=== PATIENT | female | born 1975 | race Caucasian/White ===

== ENCOUNTER 2016-12-06 16:36 | Emergency (ER) | payer BC ==
[~2016-12-06] VITALS: Ht 160 cm; Wt 62.7 kg
[~2016-12-06 16:36] MED LIST: ERGOCALCIF50000 UNIT; PAXIL10 MG PO; Percocet 5/325,Endoc PO; Protonix PO; REGLAN5 MG PO; VIIBRYD20 MG; VIIBRYD20 MG PO; Vitamin D, Drisdol PO
[2016-12-06] MEDS ORDERED: OCUVITE TABLET1 EACH PO (18:13)
[2016-12-06] MEDS ORDERED: LEXAPRO20 MG PO (18:13)
[2016-12-06 19:48] LABS: HEMATOCRIT 38.3 % (36.0-46.0); MCH 34.1 PG (29.0-34.0); MCHC 34.2 G/DL (30.0-36.0); MCV 99.7 FL (83-99); MEAN PLAT.VOLUME 8.6 uM^3 (9.5-12.4); PLATELET COUNT 127 K/uL (156-360); RBC DIS.WIDTH-CV 12.1 % (11.8-14.6); RBC DIS.WIDTH-SD 43.5 % (39-53); RED BLOOD COUNT 3.84 M/uL (3.80-5.20); WHITE BLOOD COUNT 2.8 K/uL (4.1-10.2)
[2016-12-06] MEDS ORDERED: NORCO 5/3251 TABLET PO (19:50)
[2016-12-06] MEDS ORDERED: SKELAXIN800 MG PO (19:50)
[2016-12-06 20:01] LABS: ADD MIUA? YES; BILIRUBIN NEGATIVE; BLOOD NEGATIVE; COLOR YELLOW ((YELLOW)); GLUCOSE (STRIP) NEGATIVE; KETONES 15; LEUKOCYTES SMALL; NITRITE NEGATIVE; PROTEIN (STRIP) NEGATIVE; SPECIFIC GRAVITY 1.017 (1.000-1.030); UROBILINOGEN 0.2 MG/DL (0.2-1.0)
[2016-12-06 20:01] LABS: CHLORIDE 100 mEq/L (99-109); POTASSIUM 4.1 mEq/L (3.7-5.4); SODIUM 137 mEq/L (136-147)
[2016-12-06 20:03] LABS: GLUCOSE 79 mg/dL (70-99)
[2016-12-06 20:04] LABS: ANION GAP 14 MEQ/L (2-14)
[2016-12-06 20:06] VITALS: BP 125/87
[2016-12-06 20:06] LABS: GFR ESTIMATE (CALCULATED) > 59 mL/min/
[2016-12-06 20:07] LABS: UREA NITROGEN (BUN) 7 mg/dL (9-23)
[2016-12-06 20:33] LABS: BACTERIA RARE /HPF; CASTS NONE SEEN /LPF; CRYSTALS NONE SEEN; EPITHELIAL CELLS RARE /HPF; MUCUS NONE SEEN /LPF; RED BLOOD CELLS 0-5 /HPF (0-5); UCUL ADDED? NO
== END 2016-12-06 20:07 | disposition home or self-care (01) ==
LOC: EME 16:36
PROVIDERS: Physician Assistant
DX: M54.5 Low back pain (principal); G89.29 Other chronic pain; M54.16 Radiculopathy, lumbar region
CPT/HCPCS: 72148; 80048; 81003; 85027; 99281; 99284

== ENCOUNTER 2017-04-08 16:31 | Observation (INO) | payer OTHER ==
[~2017-04-08] VITALS: Ht 160 cm; Wt 56.9 kg
[~2017-04-08 16:31] MED LIST changes: +LEXAPRO20 MG PO; +NORCO 5/3251 TABLET PO; +OCUVITE TABLET1 EACH PO; +SKELAXIN800 MG PO
[2017-04-08 17:18] LABS: HEMATOCRIT 39.3 % (36.0-46.0); MCH 34.5 PG (29.0-34.0); MCHC 34.4 G/DL (30.0-36.0); MCV 100.5 FL (83-99); PLATELET COUNT 135 K/uL (156-360); RBC DIS.WIDTH-SD 48.5 % (39-53); RED BLOOD COUNT 3.91 M/uL (3.80-5.20); WHITE BLOOD COUNT 3.6 K/uL (4.1-10.2)
[2017-04-08 17:31] LABS: CHLORIDE 98 mEq/L (99-109); POTASSIUM 4.3 mEq/L (3.7-5.4); SODIUM 137 mEq/L (136-147)
[2017-04-08 17:32] LABS: GLUCOSE 109 mg/dL (70-99)
[2017-04-08 17:34] LABS: ANION GAP 11 MEQ/L (2-14)
[2017-04-08 17:36] LABS: GFR ESTIMATE (CALCULATED) > 59 mL/min/
[2017-04-08 17:37] LABS: UREA NITROGEN (BUN) 4 mg/dL (9-23)
[2017-04-08 17:44] LABS: QUANTITATIVE HCG < 4.0 MIU/ML
[2017-04-08 19:15] LABS: ADD MIUA? YES; BILIRUBIN MODERATE; BLOOD NEGATIVE; GLUCOSE (STRIP) NEGATIVE; KETONES 5; LEUKOCYTES MODERATE; NITRITE NEGATIVE; PROTEIN (STRIP) >=500; SPECIFIC GRAVITY 1.023 (1.000-1.030)
[2017-04-08 19:19] LABS: BACTERIA RARE /HPF; EPITHELIAL CELLS RARE /HPF; GRANULAR CASTS 0-5 /LPF; HYALINE CASTS 20-30 /LPF; MUCUS 3+ /LPF; RED BLOOD CELLS 0-5 /HPF (0-5); UCUL ADDED? YES; UNCLASSIFIED CRYSTALS 1+ /HPF; WHITE BLOOD CELLS TNTC /HPF (0-5)
[2017-04-08 19:20] LABS: COLOR DK YELLOW ((YELLOW))
[2017-04-08 19:49] LABS: ICTOTEST POSITIVE
[2017-04-09 01:51] VITALS: BP 115/75
[2017-04-09 08:45] VITALS: BP 118/75
[2017-04-09 11:43] VITALS: BP 112/77
[2017-04-09] MEDS ORDERED: LEVETIRACETAM500 MG PO (12:04)
== END 2017-04-09 14:23 | disposition home or self-care (01) ==
LOC: EME 16:31 → EDOF 04-09 00:26 → 5WEST 04-09 01:37
PROVIDERS: Physician Assistant
DX: G40.909 Epilepsy, unspecified, not intractable, without status epilepticus (principal); R11.2 Nausea with vomiting, unspecified; S09.90XA Unspecified injury of head, initial encounter; W06.XXXA Fall from bed, initial encounter; R32 Unspecified urinary incontinence; G43.909 Migraine, unspecified, not intractable, without status migrainosus; M54.5 Low back pain; F10.10 Alcohol abuse, uncomplicated; F32.9 Major depressive disorder, single episode, unspecified
CPT/HCPCS: 70450; 70486; 70551; 80048; 81003; 82607; 82746; 84702; 85027; 87086; 87493; 95819; 99281; 99285; G0378; J0696; J1953; J2060; J3411; J3475; J7030; J7042; J7050

== ENCOUNTER 2017-05-08 18:41 | Inpatient (IN) | payer OTHER ==
[~2017-05-08] VITALS: Ht 160 cm; Wt 100.9 kg
[~2017-05-08 18:41] MED LIST changes: +LEVETIRACETAM500 MG PO
[2017-05-08 19:47] LABS: HEMATOCRIT 33.5 % (36.0-46.0); MCH 35.3 PG (29.0-34.0); MCHC 34.6 G/DL (30.0-36.0); MCV 101.8 FL (83-99); MEAN PLAT.VOLUME 9.6 uM^3 (9.5-12.4); PLATELET COUNT 131 K/uL (156-360); RBC DIS.WIDTH-CV 12.1 % (11.8-14.6); RBC DIS.WIDTH-SD 45.3 % (39-53); RED BLOOD COUNT 3.29 M/uL (3.80-5.20); WHITE BLOOD COUNT 9.1 K/uL (4.1-10.2)
[2017-05-08 20:08] LABS: CHLORIDE 101 mEq/L (99-109); POTASSIUM 4.9 mEq/L (3.7-5.4); SODIUM 137 mEq/L (136-147)
[2017-05-08 20:10] LABS: GLUCOSE 150 mg/dL (70-99)
[2017-05-08 20:11] LABS: ANION GAP 17 MEQ/L (2-14)
[2017-05-08 20:12] LABS: TOTAL BILIRUBIN 1.8 mg/dL (0.0-1.0)
[2017-05-08 20:13] LABS: ALKALINE PHOSPHATASE 86 IU/L (3-129)
[2017-05-08 20:14] LABS: GFR ESTIMATE (CALCULATED) > 59 mL/min/
[2017-05-08 20:15] LABS: UREA NITROGEN (BUN) 11 mg/dL (9-23)
[2017-05-08 21:05] LABS: ADD MIUA? YES; BILIRUBIN NEGATIVE; BLOOD NEGATIVE; COLOR YELLOW ((YELLOW)); GLUCOSE (STRIP) NEGATIVE; KETONES 80; LEUKOCYTES NEGATIVE; NITRITE NEGATIVE; PROTEIN (STRIP) 100; SPECIFIC GRAVITY 1.018 (1.000-1.030); UROBILINOGEN 0.2 MG/DL (0.2-1.0)
[2017-05-08 21:30] LABS: BACTERIA RARE /HPF; EPITHELIAL CELLS RARE /HPF; MUCUS TRACE /LPF; RED BLOOD CELLS 0-5 /HPF (0-5); UCUL ADDED? NO; WHITE BLOOD CELLS 0-5 /HPF (0-5)
[2017-05-08 22:56] LABS: QUANTITATIVE HCG < 4.0 MIU/ML
[2017-05-08] MEDS ORDERED: PRESERVISION T1 EACH PO (23:40)
[2017-05-08] MEDS ORDERED: MULTI-VITAMIN1 EAC3 PO (23:40)
[2017-05-08] MEDS ORDERED: PROTONIX40 MG PO (23:40)
[2017-05-09 07:25] LABS: HEMATOCRIT 31.4 % (36.0-46.0); MCH 34.7 PG (29.0-34.0); MCHC 34.1 G/DL (30.0-36.0); MCV 101.9 FL (83-99); MEAN PLAT.VOLUME 9.6 uM^3 (9.5-12.4); PLATELET COUNT 110 K/uL (156-360); RBC DIS.WIDTH-SD 44.9 % (39-53); RED BLOOD COUNT 3.08 M/uL (3.80-5.20); WHITE BLOOD COUNT 5.6 K/uL (4.1-10.2)
[2017-05-09 08:01] LABS: ALKALINE PHOSPHATASE 61 IU/L (3-129); ANION GAP 9 MEQ/L (2-14); CHLORIDE 106 MEQ/L (99-109); GFR ESTIMATE (CALCULATED) > 59 mL/min/; SAMPLE HEMOLYSIS CHECK 0; SAMPLE ICTERIC CHECK 0; SAMPLE LIPEMIA CHECK 0; SODIUM 139 MEQ/L (136-147); TOTAL BILIRUBIN 1.3 MG/DL (0.0-1.0); UREA NITROGEN (BUN) 9 mg/dL (9-23)
[2017-05-09 08:02] LABS: GLUCOSE 88 mg/dL (70-99); POTASSIUM 3.5 MEQ/L (3.7-5.4)
[2017-05-09 10:20] VITALS: BP 118/78
[2017-05-09 10:23] LABS: Estimated Average Glucose 91 mg/dL (70-123); HEMOGLOBIN A1c (GLYCOHEMOGLOB) 4.8 % HGB (Below 5.7)
[2017-05-09 10:35] LABS: HBSG INDEX 0.22
[2017-05-09 10:36] LABS: ANTI-HEPATITIS A VIRUS (IGM) Nonreactive; HAV INDEX 0.14; HPCA INDEX 0.06
[2017-05-09 10:37] LABS: ANTI-HEPATITIS B CORE (IGM) Nonreactive; HBC IgM INDEX 0.08
[2017-05-09 15:05] VITALS: BP 123/77
[2017-05-09 23:26] LABS: INTERNAL CONTROL VALID? YES
[2017-05-09 23:54] LABS: C DIFF TOXIN NEGATIVE (NEGATIVE)
[2017-05-09 23:59] VITALS: BP 109/67
[2017-05-10 00:11] LABS: SPECIMEN PROCESSING CONTROL PASS
[2017-05-10 00:12] LABS: PROBE CHECK PASS
[2017-05-10 05:57] LABS: HEMATOCRIT 30.3 % (36.0-46.0); MCH 34.4 PG (29.0-34.0); MCV 101.3 FL (83-99); MEAN PLAT.VOLUME 10.1 uM^3 (9.5-12.4); PLATELET COUNT 113 K/uL (156-360); RBC DIS.WIDTH-SD 44.7 % (39-53); RED BLOOD COUNT 2.99 M/uL (3.80-5.20); WHITE BLOOD COUNT 5.1 K/uL (4.1-10.2)
[2017-05-10 06:21] LABS: ANION GAP 9 MEQ/L (2-14); CHLORIDE 108 MEQ/L (99-109); GFR ESTIMATE (CALCULATED) > 59 mL/min/; GLUCOSE 84 mg/dL (70-99); POTASSIUM 2.9 MEQ/L (3.7-5.4); SAMPLE HEMOLYSIS CHECK 0; SAMPLE ICTERIC CHECK 0; SAMPLE LIPEMIA CHECK 0; SODIUM 139 MEQ/L (136-147); UREA NITROGEN (BUN) 3 mg/dL (9-23)
[2017-05-10 06:28] LABS: ALKALINE PHOSPHATASE 59 IU/L (3-129); ANION GAP 9 MEQ/L (2-14); CHLORIDE 107 MEQ/L (99-109); GFR ESTIMATE (CALCULATED) > 59 mL/min/; GLUCOSE 84 mg/dL (70-99); POTASSIUM 2.9 MEQ/L (3.7-5.4); SAMPLE HEMOLYSIS CHECK 0; SAMPLE ICTERIC CHECK 0; SAMPLE LIPEMIA CHECK 0; SODIUM 138 MEQ/L (136-147); UREA NITROGEN (BUN) 3 mg/dL (9-23)
[2017-05-10 06:30] LABS: MAGNESIUM 1.7 mg/dl (1.3-2.7); TOTAL BILIRUBIN 0.9 MG/DL (0.0-1.0)
[2017-05-10 08:02] VITALS: BP 122/75
[2017-05-10 11:15] VITALS: BP 119/73
[2017-05-10 16:00] VITALS: BP 113/76
[2017-05-11 00:09] VITALS: BP 106/57
[2017-05-11 04:24] VITALS: BP 115/69
[2017-05-11 05:41] LABS: HEMATOCRIT 32.3 % (36.0-46.0); MCH 35.2 PG (29.0-34.0); MCV 100.6 FL (83-99); PLATELET COUNT 126 K/uL (156-360); RBC DIS.WIDTH-CV 11.7 % (11.8-14.6); RBC DIS.WIDTH-SD 43.5 % (39-53); RED BLOOD COUNT 3.21 M/uL (3.80-5.20); WHITE BLOOD COUNT 3.1 K/uL (4.1-10.2)
[2017-05-11 06:45] LABS: ANION GAP 8 MEQ/L (2-14); CHLORIDE 106 MEQ/L (99-109); GFR ESTIMATE (CALCULATED) > 59 mL/min/; GLUCOSE 88 mg/dL (70-99); POTASSIUM 3.2 MEQ/L (3.7-5.4); SAMPLE HEMOLYSIS CHECK 0; SAMPLE ICTERIC CHECK 0; SAMPLE LIPEMIA CHECK 0; SODIUM 136 MEQ/L (136-147)
[2017-05-11 06:50] LABS: UREA NITROGEN (BUN) < 2 mg/dL (9-23)
[2017-05-11 08:31] VITALS: BP 113/76
[2017-05-11 11:52] VITALS: BP 114/73
[2017-05-11 13:33] LABS: HEMATOCRIT 34.4 % (36.0-46.0); MCH 34.8 PG (29.0-34.0); MCV 102.4 FL (83-99); MEAN PLAT.VOLUME 9.8 uM^3 (9.5-12.4); PLATELET COUNT 157 K/uL (156-360); RBC DIS.WIDTH-SD 45.6 % (39-53); RED BLOOD COUNT 3.36 M/uL (3.80-5.20); WHITE BLOOD COUNT 3.4 K/uL (4.1-10.2)
[2017-05-11 14:52] LABS: ANION GAP 4 MEQ/L (2-14); CHLORIDE 104 MEQ/L (99-109); GFR ESTIMATE (CALCULATED) > 59 mL/min/; GLUCOSE 101 mg/dL (70-99); SAMPLE HEMOLYSIS CHECK 0; SAMPLE ICTERIC CHECK 0; SAMPLE LIPEMIA CHECK 0; SODIUM 133 MEQ/L (136-147); UREA NITROGEN (BUN) < 2 mg/dL (9-23)
[2017-05-11] MEDS ORDERED: CHOLESTYRAMINE P4 GM PO (14:55)
[2017-05-11] MEDS ORDERED: FLAGYL500 MG PO (14:56)
[2017-05-11] MEDS ORDERED: LEVOFLOXACIN500 MG PO (14:57)
== END 2017-05-11 16:56 | disposition home or self-care (01) | DRG 395 ==
LOC: EME 18:41 → EDOF 05-09 01:59 → 5SOUTH 05-09 01:59 → EDOF 05-09 09:50 → 5SOUTH 05-09 14:52
PROVIDERS: Hospitalist; Internal Medicine; Nurse Practitioner Adult Health; Physician Assistant
DX: K63.89 Other specified diseases of intestine (principal); K52.9 Noninfective gastroenteritis and colitis, unspecified; F10.10 Alcohol abuse, uncomplicated; D53.9 Nutritional anemia, unspecified; E87.6 Hypokalemia; F41.9 Anxiety disorder, unspecified; G40.909 Epilepsy, unspecified, not intractable, without status epilepticus; K76.0 Fatty (change of) liver, not elsewhere classified; F32.9 Major depressive disorder, single episode, unspecified; G43.909 Migraine, unspecified, not intractable, without status migrainosus; M54.5 Low back pain; R00.0 Tachycardia, unspecified; R74.0 Nonspecific elevation of levels of transaminase and lactic acid dehydrogenase [LDH]; D69.59 Other secondary thrombocytopenia
CPT/HCPCS: 74176; 76705; 80048; 80048 91; 80053; 80074; 81003; 82607; 83036; 83605; 83630; 83735; 84100; 84702; 85027; 87493; 87506; 93005; 99281; 99285; C9113; G0480; J1644; J1956; J2060; J2405; J3010; J3411; J3475; J3480; J7030; S0030

== ENCOUNTER 2017-09-01 21:55 | Emergency (ER) | payer OTHER ==
[~2017-09-01] VITALS: Ht 160 cm; Wt 65.8 kg
[~2017-09-01 21:55] MED LIST changes: +CHOLESTYRAMINE P4 GM PO; +FLAGYL500 MG PO; +LEVOFLOXACIN500 MG PO; +MULTI-VITAMIN1 EAC3 PO; +PRESERVISION T1 EACH PO; +PROTONIX40 MG PO
[2017-09-01 23:15] LABS: HEMATOCRIT 36.5 % (36.0-46.0); MCH 30.8 PG (29.0-34.0); MCV 90.8 FL (83-99); MEAN PLAT.VOLUME 8.8 uM^3 (9.5-12.4); PLATELET COUNT 168 K/uL (156-360); RBC DIS.WIDTH-CV 12.2 % (11.8-14.6); RBC DIS.WIDTH-SD 40.7 % (39-53); RED BLOOD COUNT 4.02 M/uL (3.80-5.20); WHITE BLOOD COUNT 3.6 K/uL (4.1-10.2)
[2017-09-01 23:23] LABS: CHLORIDE 107 mEq/L (99-109); POTASSIUM 3.9 mEq/L (3.7-5.4); SODIUM 139 mEq/L (136-147)
[2017-09-01 23:25] LABS: GLUCOSE 91 mg/dL (70-99)
[2017-09-01 23:27] LABS: ANION GAP 11 MEQ/L (2-14); TOTAL BILIRUBIN 0.2 mg/dL (0.0-1.0)
[2017-09-01 23:28] LABS: ADD MIUA? YES; BILIRUBIN NEGATIVE; BLOOD LARGE; GLUCOSE (STRIP) NEGATIVE; KETONES NEGATIVE; LEUKOCYTES TRACE; NITRITE NEGATIVE; PROTEIN (STRIP) 100; SPECIFIC GRAVITY 1.012 (1.000-1.030); UROBILINOGEN 0.2 MG/DL (0.2-1.0)
[2017-09-01 23:28] LABS: SERUM ETHYL ALCOHOL 327 mg/dL
[2017-09-01 23:29] LABS: ALKALINE PHOSPHATASE 59 IU/L (3-129)
[2017-09-01 23:30] LABS: COLOR RED ((YELLOW))
[2017-09-01 23:30] LABS: GFR ESTIMATE (CALCULATED) > 59 mL/min/; UREA NITROGEN (BUN) 9 mg/dL (9-23)
[2017-09-01 23:44] LABS: AMPHETAMINE NEGATIVE (500 ng/mL); BARBITURATES NEGATIVE (200 ng/mL); BENZODIAZEPINES NEGATIVE (150 ng/mL); COCAINE NEGATIVE (150 ng/mL); INTERNAL CONTROLS VALID? YES; METHADONE NEGATIVE (200 ng/mL); METHAMPHETAMINE NEGATIVE (500 ng/mL); OPIATES (MORPHINE) NEGATIVE (100 ng/mL); OXYCODONE NEGATIVE (100 ng/mL); PHENCYCLIDINE NEGATIVE (25 ng/mL); PROPOXYPHENE NEGATIVE (300 ng/mL); THC CANNABINOIDS NEGATIVE (50 ng/mL); TRICYCLIC ANTIDEPRESSANTS NEGATIVE (300 ng/mL)
[2017-09-01 23:59] LABS: RED BLOOD CELLS TNTC /HPF (0-5)
[2017-09-02 02:02] VITALS: BP 146/90
== END 2017-09-02 02:03 | disposition home or self-care (01) ==
LOC: EME → EDBD 21:55 → EME 09-02 02:03
PROVIDERS: Emergency Medicine
DX: F10.10 Alcohol abuse, uncomplicated (principal); R31.9 Hematuria, unspecified; F32.9 Major depressive disorder, single episode, unspecified; F41.9 Anxiety disorder, unspecified; Z88.8 Allergy status to other drugs, medicaments and biological substances
CPT/HCPCS: 80053; 81003; 85027; 99281; 99284; G0480